=== PATIENT | male | born 1970 | race Caucasian/White ===

== ENCOUNTER → 2020-01-09 | Outpatient (CLI) | payer SELFPAY | END | disposition home or self-care (01) | LOC: COVID19 00:20 | PROVIDERS: ATTEND Internal Medicine | DX: U07.1 COVID-19 (principal) ==

== ENCOUNTER 2023-12-23 18:34 | Emergency (ER) | payer OTHER ==
[~2023-12-23] VITALS: Ht 180.3 cm; Wt 72.6 kg
[~2023-12-23 18:34] MED LIST: 'XANAX1 MG PO; HYDROCODONE BIT1 T11 PO; MOTRIN800 MG PO
[2023-12-23] MEDS ORDERED: HYDROCODONE-AC1 EAC1 PO (18:44)
[2023-12-23] MEDS ORDERED: FLUORESCEIN SODIUM 1 MG STRIP OPH ONE (18:45)
[2023-12-23] MEDS ORDERED: Tetracaine Hydrochloride 0.5% 4 ML BOT OPH ONE (18:45)
[2023-12-23] MEDS ORDERED: CIPROFLOXACIN H10 ML OPH (20:53)
== END 2023-12-23 20:59 | disposition home or self-care (01) ==
LOC: ED 18:34
DX: S00.212A Abrasion of left eyelid and periocular area, initial encounter (principal); F41.9 Anxiety disorder, unspecified; W22.8XXA Striking against or struck by other objects, initial encounter; Y93.89 Activity, other specified; Y92.009 Unspecified place in unspecified non-institutional (private) residence as the place of occurrence of the external cause; Y99.8 Other external cause status